=== PATIENT | male | born 1985 | race African-American/Black ===

== ENCOUNTER → 2016-11-10 | Outpatient (CLI) | payer BC ==
--- NOTE | 2016-11-10 12:28 | DIAGNOSTIC IMAGING REPORT ---
LEFT KNEE MRI HISTORY: LEFT KNEE PAIN, S/P KNEE INJURY COMPARISON STUDY: Left knee 11/05/2016. TECHNIQUE: Multiplanar multisequence MRI of the left knee was performed according to standard department protocol without the use of contrast. FINDINGS: Menisci: The medial and lateral menisci are intact. Ligaments: The ACL, PCL, and LCL are intact. There is 1.7 x 0.4 cm calcific density medial to the medial femoral condyle near the proximal attachment of the MCL. There is edema both within and surrounding this calcific fragment. There is also edema within and surrounding the proximal fibers of the MCL. 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 The surrounding edema could be due to an acute partial tear of the proximal MCL or chronic irritation. Extensor mechanism: The quadriceps tendon and patellar ligament are intact. Articular cartilage and bone: No fracture or dislocation. Minimal edema within the medial to the medial femoral condyle. Cartilage spaces are maintained for age. Joint effusion: None. Soft tissues: Small amount of edema within the superolateral aspect of Hoffa's fat-pad. IMPRESSION: 1. There is 1.7 x 0.4 cm calcific density medial to the medial femoral condyle near the proximal attachment of the MCL. There is edema both within and surrounding this calcific fragment. There is also edema within and surrounding the proximal fibers of the MCL. 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 The associated edema could be due to an acute on chronic partial tear of the proximal MCL or chronic irritation. 2. Mild edema within the superolateral aspect of Hoffa's fat-pad. 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 Electronically signed by: Real Spring M.D. 11/10/2016 12:27 PM Dictated Date/Time: 11/10/2016 12:18 PM
== END | disposition home or self-care (01) ==
LOC: C.MRIBC 11:25
PROVIDERS: ATTEND Orthopaedic Surgery
DX: M25.562 Pain in left knee (principal); R93.7 Abnormal findings on diagnostic imaging of other parts of musculoskeletal system; R60.0 Localized edema